=== PATIENT | female | born 1985 | race African-American/Black ===

== ENCOUNTER 2020-12-08 07:14 | Inpatient (IN) ==
[2020-12-08] MEDS ORDERED: hydrOXYzine HCL 25 MG/1 ML VIAL IM PRN (08:39)
[2020-12-08] MEDS ORDERED: ePHEDrine 50 MG/ML VIAL IV PRN (08:39)
[2020-12-08] MEDS ORDERED: diphenhydrAMINE 50 MG/1 ML VIAL IV PRN ×2 (08:39)
[2020-12-08] MEDS ORDERED: LACTATED RINGERS 1,000 ML IV ONE (08:39)
[2020-12-08] MEDS ORDERED: PROMETHAZINE 25 MG/1 ML VIAL IM ONE (08:39)
[2020-12-08] MEDS ORDERED: FAMOTIDINE 20 MG/2 ML VIAL IV ONE (08:39)
[2020-12-08] MEDS ORDERED: CITRIC ACID/SODIUM CITRATE 30 ML UDCUP PO ONE (08:39)
[2020-12-08] MEDS ORDERED: NALOXONE 0.4 MG/ML VIAL IV PRN (08:39)
[2020-12-08] MEDS ORDERED: ONDANSETRON 4 MG/2 ML VIAL IV ONE (08:39)
[2020-12-08] MEDS ORDERED: fentaNYL 2 MCG/ROPIV 0.2% EPID 100 ML EPIDURAL SCH (09:00)
[2020-12-08] MEDS ORDERED: OXYTOCIN/LR 20 UNIT/1,000 ML BAG IV ONE ×2 (09:56→18:57)
[2020-12-08] MEDS ORDERED: miSOPROStoL 200 MCG TABLET ONE (09:56)
[2020-12-08] MEDS ORDERED: TRANEXAMIC ACID 1,000 MG/10 ML VIAL ONE (09:56)
[2020-12-08] MEDS ORDERED: METHYLERGONOVINE 0.2 MG/1 ML AMP ONE (09:57)
[2020-12-08] MEDS ORDERED: CARBOPROST TROMETHAMINE 250 MCG/ML AMP IM ONE (09:57)
[2020-12-08 10:02] LABS: Basophils % 0.2 % (0.0-0.8); Eosinophils % 0.1 % (0.00-10.9); Hematocrit 30.2 VOL% (35.7-47.0); Hemoglobin 9.5 GM/DL (12.0-16.0); Immature Granulocytes % 0.5 %; Immature Granulocytes Absolute 0.07 #; Lymphocytes # 1.6 10*3/uL (1.4-4.0); Mean Corpuscular HGB Conc 31.5 GM/DL (32-36); Mean Platelet Volume 11.4 FL (9.6-12.0); Monocytes % 4.2 % (1.7-12.7); Platelet Count 246 T/CUMM (130-400); Red Blood Count 3.92 MC/CUMM (3.8-5.5); Red Cell Distribution Width 15.5 % (9.3-17.3); White Blood Count 14.2 T/CUMM (4-12)
[2020-12-08 10:22] LABS: Albumin 2.4 G/DL (3.4-5.0); Bilirubin,Total 0.7 MG/DL (0.2-1.0); Total Protein 6.8 G/DL (6.4-8.3)
[2020-12-08] MEDS: LACTATED RINGERS 1,000 ML IV SCH ×3 (10:45→17:15)
[2020-12-08 11:16] LABS: Bilirubin,Urine Negative (Negative); Blood, Urine Large mg/dL (Negative); Glucose,Urine (UA) Negative (Negative); Ketones,Urine 25 mg/dL (Negative); Nitrite,Urine Negative (Negative); Protein,Urine 100 MG/DL; Urine Appearance Clear (Clear); Urine Color Yellow (Yellow); Urine Specific Gravity 1.025 (1.001-1.035)
[2020-12-08 16:57] LABS: Cord Arterial Blood HCO3 18.6 MMOL/L
[2020-12-08 17:00] LABS: Cord Venous Blood HCO3 21.8 MMOL/L; Cord Venous Blood PCO2 43.8 MMHG; Cord Venous Blood PO2 29.2
[2020-12-08] MEDS ORDERED: LANOLIN 50% CREAM 0.3 OZ TUBE TOP PRN (18:57)
[2020-12-08] MEDS ORDERED: BENZOCAINE 20%/MENTHOL 0.5% SPRAY 56 GM CAN TOP PRN (18:57)
[2020-12-08] MEDS ORDERED: DIPH/TET/ACEL PERT BOOSTER VACCINE 0.5 ML VIAL IM ONE (18:57)
[2020-12-08] MEDS ORDERED: oxyCODONE/ACETAMINOPHEN 5-325 MG TABLET PO PRN (18:57)
[2020-12-08] MEDS ORDERED: ACETAMINOPHEN 325 MG TABLET PO PRN (18:57)
[2020-12-08] MEDS ORDERED: ONDANSETRON 4 MG/2 ML VIAL IV PRN (18:57)
[2020-12-08] MEDS ORDERED: MEASLES/MUMPS/RUBELLA VACCINE 0.5 ML VIAL SUBCUT ONE (18:57)
[2020-12-08] MEDS ORDERED: WITCH HAZEL PADS 100/JAR TOP PRN (18:57)
[2020-12-08] MEDS ORDERED: BISACODYL 10 MG SUPP RECTAL PRN (18:57)
[2020-12-08] MEDS ORDERED: IBUPROFEN 800 MG TABLET PO PRN (18:57)
[2020-12-08] MEDS ORDERED: HYDROCORTISONE 2.5% RECTAL CREAM 30 GM TUBE TOP PRN (18:57)
[2020-12-08] MEDS ORDERED: RHO(D) IMMUNE GLOBULIN 300 MCG SYRINGE IM ONE (18:57)
[2020-12-08] MEDS ORDERED: OXYTOCIN 10 UNIT/ML VIAL IM ONE (18:57)
[2020-12-08] MEDS: DOCUSATE SODIUM 100 MG CAPSULE PO SCH (23:35)
[2020-12-09 06:02] LABS: Basophils % 0.3 % (0.0-0.8); Eosinophils % 0.1 % (0.00-10.9); Hematocrit 26.2 VOL% (35.7-47.0); Hemoglobin 8.8 GM/DL (12.0-16.0); Immature Granulocytes % 0.5 %; Immature Granulocytes Absolute 0.07 #; Lymphocytes % 14.5 % (21.3-54.2); Mean Corpuscular HGB Conc 33.6 GM/DL (32-36); Mean Corpuscular Volume 73.2 FL (87-102); Mean Platelet Volume 11.6 FL (9.6-12.0); Neutrophils % 78.6 % (38.7-73.9); Platelet Count 197 T/CUMM (130-400); Red Blood Count 3.58 MC/CUMM (3.8-5.5); Red Cell Distribution Width 15.2 % (9.3-17.3); White Blood Count 14.1 T/CUMM (4-12)
[2020-12-09] MEDS: DOCUSATE SODIUM 100 MG CAPSULE PO SCH ×2 (07:48→17:23)
[2020-12-09] MEDS: oxyCODONE/ACETAMINOPHEN 5-325 MG TABLET PO PRN ×2 (07:48→17:22)
[2020-12-09 07:59] VITALS: BP 114/69
[2020-12-10] MEDS: oxyCODONE/ACETAMINOPHEN 5-325 MG TABLET PO PRN (04:32)
[2020-12-10] MEDS: DOCUSATE SODIUM 100 MG CAPSULE PO SCH ×2 (08:04)
[2020-12-10] MEDS ORDERED: INFLUENZA VIRUS VACCINE 0.5 ML SYRINGE IM ONE (08:52)
== END 2020-12-10 13:25 | disposition home or self-care (01) | DRG 560 ==
LOC: N.LD 07:14
PROVIDERS: ADMIT Obstetrics & Gynecology; ATTEND Obstetrics & Gynecology